=== PATIENT | female | born 1960 | race Caucasian/White ===

== ENCOUNTER 2019-04-23 12:22 | Observation (INO) ==
[2019-04-23] MEDS ORDERED: 0.9 % Sodium Chloride 1,000 ML IVC ONE (13:01)
--- NOTE | 2019-04-23 13:02 | Emergency Department Note ---
Disposition Clinical Impression: Abdominal pain, Calculus of kidney, Adrenal adenoma, Cholecystitis Disposition: Admitted As Inpatient Time of Disposition: 17:11 General Adult HPI - General Chief complaint: ED Abdominal Pain Stated complaint: Acute Cholecysitis Time Seen by Provider: 04/23/19 12:58 Source: patient Limitations: no limitations - History of Present Illness HPI Narrative: 58-year-old female reports emergency department complaining of right-sided upper abdominal pain. She has had recurrent nonbloody emesis. She saw her primary care physician who ordered an outpatient CT scan which demonstrated acute cholecystitis. There is no history of trauma. No diarrhea. The patient denies any flank pain. There is no history of fever chest pain or shortness of breath. The patient describes pain after eating. There is no history of rash or urinary symptomatology no vaginal discharge or bleeding or reported. The patient denies other acute complaints or concerns. Pain Scale: 5 - Related Data Allergies Allergy/AdvReac Type Severity Reaction Status Date / Time codeine AdvReac Mild Rash Verified 06/24/18 17:33 All systems ED: reviewed and negative except as stated. Past Medical History - Past Medical History Medical history: Reports: no medical history Psychiatric history: Reports: no psych history - Social History Smoking Status: Former smoker Smokeless Tobacco Status: No Alcohol use: Reports: none Drug use: Reports: none Physical Exam - General Limitations: no limitations General appearance: alert, in no apparent distress - Head Head exam: atraumatic, normocephalic, normal inspection - Eye Eye exam: Present: normal appearance, PERRL, EOMI - ENT ENT exam: normal exam, normal oropharynx, mucous membranes moist, TM's normal bilaterally, normal external ear exam - Neck Neck exam: Present: normal inspection, full ROM, trachea midline - Chest Chest inspection: Present: symmetric chest wall rise. Absent: tenderness - Respiratory Respiratory exam: Present: normal lung sounds bilaterally. Absent: respiratory distress, prolonged expiratory phase - Cardiovascular Cardiovascular exam: Present: regular rate, normal rhythm - Abdominal Exam Abdominal exam: Present: soft, tenderness, normal bowel sounds. Absent: distention, guarding, rebound, rigidity, trauma Abdominal tenderness: Present: RUQ, moderate - Extremities Exam Extremities exam: Present: normal inspection, full ROM, normal capillary refill. Absent: tenderness, pedal edema, joint swelling, calf tenderness - Expanded Lower Extremity Exam Lower leg exam: Absent: Homans' sign Neurovascular/Tendon exam: Present: normal capillary refill. Absent: motor deficit, sensory deficit, tendon deficit, extremity cold to touch, pallor - Back Exam Back exam: Present: normal inspection, full ROM. Absent: tenderness, CVA tenderness (R), CVA tenderness (L), vertebral tenderness - Neurological Exam Neurological exam: Present: alert, oriented X3, CN II-XII intact. Absent: motor sensory deficit - Psychiatric Psychiatric exam: Present: normal affect, normal mood - Skin Skin exam: Present: warm, dry, intact, normal color Course Vital Signs Temperature 98.1 F 04/23/19 12:51 Pulse Rate 69 04/23/19 12:51 Respiratory Rate 18 04/23/19 12:51 Blood Pressure 166/83 04/23/19 12:51 O2 Sat by Pulse Oximetry 97 04/23/19 12:51 Temperature 98.1 F 04/23/19 12:51 Pulse Rate 65 04/23/19 14:51 Respiratory Rate 18 04/23/19 14:51 Blood Pressure 154/89 04/23/19 14:51 O2 Sat by Pulse Oximetry 100 04/23/19 14:51 Oxygen Delivery Oxygen Delivery Room Air Medical Decision Making - MDM Narrative Medical decision making narrative: The patient reports with right upper abdominal pain and vomiting. CT scan demonstrates what appears to be cholecystitis. Laboratory studies reviewed. The patient was given IV Dilaudid and Zofran emergency department as well as IV fluids. She has had recurrent vomiting per report. Based on the patient's CT findings suggestive of cholecystitis I consulted with the patient's personal surgeon Dr. Leavitt who came to the emergency Department evaluated the patient. The patient will be admitted to the surgical service for further evaluation. Dr. Leavitt does not recommend antibiotics at this time. The patient is agreeable to admission. She is currently stable pending admission to the surgical service. - Lab Data Lab results reviewed: Yes I reviewed the patient's lab results. Result diagrams: 04/23/19 13:29 04/23/19 13:29 Lab Results 04/23/19 04/23/19 04/23/19 Range/Units 13: 13:29 13:29 WBC 9.9 (4.3-11.1) K/mcL RBC 4.45 (3.82-4.97) M/mcL Hgb 14.1 (11.5-15.4) g/dL Hct 41.9 (35.3-44.9) % MCV 94.2 (83.0-100.0) fL MCH 31.7 (28.0-33.3) pg MCHC 33.7 (31.6-35.5) g/dL RDW 12.4 (11.5-14.5) % Plt Count 270 (140-400) K/mcL MPV 9.8 (9.4-12.4) fL Immature Gran % 0.3 (0-4) % Seg Neutrophils % 71.3 % Lymphocytes % 19.0 % Monocytes % 8.1 % Eosinophils % 1.0 % Basophils % 0.3 % Neutrophils # 7.0 (1.6-8.9) K/mcL Lymphocytes # 1.9 (0.6-4.6) K/mcL Monocytes # 0.8 (0.0-1.3) K/mcL Eosinophils # 0.1 (0.0-0.6) K/mcL Basophils # 0.0 (0.0-0.2) K/mcL PT 11.1 (9.4-12.1) Seconds INR 1.0 APTT 32.0 (26.0-36.0) Seconds Sodium (136-145) mEq/L Potassium (3.5-5.1) mEq/L Chloride (98-107) mEq/L Carbon Dioxide (23-29) mEq/L BUN (6-20) mg/dL Creatinine (0.60-1.20) mg/dL Est GFR ( Amer) (> 60) Est GFR (Non-Af Amer) (> 60) BUN/Creatinine Ratio (6-26) Glucose (70-105) mg/dL Calculated Osmolality (280-300) Lactic Acid (0.5-2.2) mmol/L Calcium (8.6-10.3) mg/dL Total Bilirubin (0.3-1.0) mg/dL Direct Bilirubin (0.0-0.2) mg/dL Indirect Bilirubin (0.0-1.2) mg/dL AST (13-39) Units/L ALT (7-52) Units/L Alkaline Phosphatase (34-104) Units/L Troponin I (< 0.04) ng/mL C-Reactive Protein (Less than 10) mg/L Serum Total Protein (6.4-8.9) g/dL Albumin (3.5-5.7) g/dL Globulin (2.4-3.5) g/dL Albumin/Globulin Ratio (1.1-2.2) Lipase (11-82) Units/L Urine Color Yellow (Yellow) Urine Clarity Clear (Clear) Urine pH 7.0 (5.0-8.0) pH Units Ur Specific Ballard 1.016 (1.010-1.025) Urine Protein Negative (Neg-Trace) mg/dL Urine Glucose (UA) Normal (Normal) mg/dL Urine Ketones Negative (Negative) mg/dL Urine Blood Negative (Negative) Urine Nitrite Negative (Negative) Urine Bilirubin Negative (Negative) Urine Urobilinogen Normal (Normal) mg/dL Ur Leukocyte Esterase Negative (Negative) Ur Culture Indicated? NO (NO) 04/23/19 04/23/19 04/23/19 Range/Units 13:29 13:29 13:29 WBC (4.3-11.1) K/mcL RBC (3.82-4.97) M/mcL Hgb (11.5-15.4) g/dL Hct (35.3-44.9) % MCV (83.0-100.0) fL MCH (28.0-33.3) pg MCHC (31.6-35.5) g/dL RDW (11.5-14.5) % Plt Count (140-400) K/mcL MPV (9.4-12.4) fL Immature Gran % (0-4) % Seg Neutrophils % % Lymphocytes % % Monocytes % % Eosinophils % % Basophils % % Neutrophils # (1.6-8.9) K/mcL Lymphocytes # (0.6-4.6) K/mcL Monocytes # (0.0-1.3) K/mcL Eosinophils # (0.0-0.6) K/mcL Basophils # (0.0-0.2) K/mcL PT (9.4-12.1) Seconds INR APTT (26.0-36.0) Seconds Sodium 140 (136-145) mEq/L Potassium 3.7 (3.5-5.1) mEq/L Chloride 108 H (98-107) mEq/L Carbon Dioxide 24 (23-29) mEq/L BUN 11 (6-20) mg/dL Creatinine 0.59 L (0.60-1.20) mg/dL Est GFR ( Amer) > 60 (> 60) Est GFR (Non-Af Amer) > 60 (> 60) BUN/Creatinine Ratio 19 (6-26) Glucose 96 (70-105) mg/dL Calculated Osmolality 289 (280-300) Lactic Acid 0.7 (0.5-2.2) mmol/L Calcium 9.5 (8.6-10.3) mg/dL Total Bilirubin 0.7 (0.3-1.0) mg/dL Direct Bilirubin 0.1 (0.0-0.2) mg/dL Indirect Bilirubin 0.6 (0.0-1.2) mg/dL AST 13 (13-39) Units/L ALT 14 (7-52) Units/L Alkaline Phosphatase 66 (34-104) Units/L Troponin I < 0.03 (< 0.04) ng/mL C-Reactive Protein < 5 (Less than 10) mg/L Serum Total Protein 7.1 (6.4-8.9) g/dL Albumin 4.6 (3.5-5.7) g/dL Globulin 2.5 (2.4-3.5) g/dL Albumin/Globulin Ratio 1.8 (1.1-2.2) Lipase 30 (11-82) Units/L Urine Color (Yellow) Urine Clarity (Clear) Urine pH (5.0-8.0) pH Units Ur Specific Ballard (1.010-1.025) Urine Protein (Neg-Trace) mg/dL Urine Glucose (UA) (Normal) mg/dL Urine Ketones (Negative) mg/dL Urine Blood (Negative) Urine Nitrite (Negative) Urine Bilirubin (Negative) Urine Urobilinogen (Normal) mg/dL Ur Leukocyte Esterase (Negative) Ur Culture Indicated? (NO) - Radiology Data Radiology results reviewed: Yes I reviewed the patient's radiology results.
[2019-04-23 13:19] LABS: Bilirubin,Urine Negative (Negative); Blood,Urine Negative (Negative); Clarity,Urine Clear (Clear); Color,Urine Yellow (Yellow); Glucose,Urine (UA) Normal (Normal); Ketones,Urine Negative (Negative); Leukocyte Esterase,Urine Negative (Negative); Nitrite,Urine Negative (Negative); Protein,Urine Negative (Neg-Trace); Specific Gravity,Urine 1.016 (1.010-1.025); Urobilinogen,Urine Normal (Normal)
[2019-04-23] MEDS ORDERED: *HR* HYDROmorphone (PF) 1 MG/ML SYRINGE IVP ONE (13:38)
[2019-04-23] MEDS ORDERED: Ondansetron 4 MG/2 ML VIAL IVP ONE (13:39)
[2019-04-23 13:42] LABS: Basophils % 0.3 %; Eosinophils # 0.1 K/mcL (0.0-0.6); Hematocrit 41.9 % (35.3-44.9); Hemoglobin 14.1 g/dL (11.5-15.4); Immature Granulocytes % 0.3 % (0-4); Lymphocytes # 1.9 K/mcL (0.6-4.6); Mean Corpuscular HGB Conc 33.7 g/dL (31.6-35.5); Mean Corpuscular Hemoglobin 31.7 pg (28.0-33.3); Mean Corpuscular Volume 94.2 fL (83.0-100.0); Mean Platelet Volume 9.8 fL (9.4-12.4); Monocytes # 0.8 K/mcL (0.0-1.3); Monocytes % 8.1 %; Platelet Count 270 K/mcL (140-400); Red Blood Count 4.45 M/mcL (3.82-4.97); Red Cell Distribution Width 12.4 % (11.5-14.5); Segmented Neutrophils % 71.3 %; White Blood Count 9.9 K/mcL (4.3-11.1)
[2019-04-23 13:57] LABS: Prothrombin Time 11.1 Seconds (9.4-12.1)
[2019-04-23 14:11] LABS: Alanine Aminotransferase 14 Units/L (7-52); Albumin 4.6 g/dL (3.5-5.7); Albumin/Globulin Ratio 1.8 (1.1-2.2); Alkaline Phosphatase 66 Units/L (34-104); Aspartate Amino Transferase 13 Units/L (13-39); BUN/Creatinine Ratio 19 (6-26); Bilirubin,Direct 0.1 mg/dL (0.0-0.2); Bilirubin,Indirect 0.6 mg/dL (0.0-1.2); Bilirubin,Total 0.7 mg/dL (0.3-1.0); Blood Urea Nitrogen 11 mg/dL (6-20); Calcium 9.5 mg/dL (8.6-10.3); Carbon Dioxide 24 mEq/L (23-29); Chloride 108 mEq/L (98-107); Globulin 2.5 g/dL (2.4-3.5); Glucose 96 mg/dL (70-105); Lipase 30 Units/L (11-82); Osmolality,Calculated 289 (280-300); Potassium 3.7 mEq/L (3.5-5.1); Sodium 140 mEq/L (136-145); Total Protein 7.1 g/dL (6.4-8.9); Troponin I < 0.03 ng/mL (< 0.04); eGFR For African Americans > 60 (> 60); eGFR For Non-African Americans > 60 (> 60)
[2019-04-23] MEDS ORDERED: *HR* OxyCODONE Immed Rel 5 MG TABLET PO PRN (17:04)
[2019-04-23] MEDS ORDERED: Acetaminophen 325 MG TABLET PO PRN (17:04)
[2019-04-23] MEDS ORDERED: *HR* OxyCODONE/APAP 5/325 TABLET PO PRN (17:04)
[2019-04-23] MEDS ORDERED: Ondansetron 4 MG/2 ML VIAL IVP PRN (17:06)
--- NOTE | 2019-04-23 17:25 | General Surg History&Physical ---
Date of Encounter: 04/23/19 Time of Encounter: 16:35 History of Present Illness Chief complaint: right upper quadrant pain, cholelithiasis HPI: Ms. Araiza is a 58 year old female referred to me at the patient 's request after presenting to Dr Aviles early today with severe, recurrent right upper quadrant abdominal pain accompanied by nausea and vomiting. The patient describes symptoms dating back approximately 1 week. She was seen earlier today and CT abdomen/pelvis was ordered. The CT findings include: Clear lung bases bilaterally; liver, spleen, pancreas, and kidneys demonstrate no acute findings; stable left adrenal adenoma; abnormal gallbladder with gallstones, wall thickening and pericholecystic fluid. The findings were concerning for acute cholecystitis prompting referral to the [facility] ED for further evaluation and possible treatment. Past medical history: Diverticulosis; perforated diverticulitis with pericolic abscess, status post primary sigmoid resection with stapled colocolonic anastomosis, 03/27/2013. Surgical history: Primary sigmoid resection, 03/27/2013; ; hysterectomy; incision and drainage perirectal abscess; hemorrhoidectomy; colonoscopy, last completed 2002 Allergies: Codeine Medications: Aleve Family history: Mother had breast cancer Social history: Patient quit all alcohol consumption approximately 10 years ago; she denies any illicit drug use. She "quit smoking" also approximately 10 years ago but then reports smoking an occasional cigarette. Daughter is approximately 32 weeks but otherwise healthy. Physical examination: Age-appropriate woman resting comfortably in her hospital bed. She was medicated with hydromorphone and ondansetron prior to my arrival in the emergency department. She is feeling significantly improved but still complaining of mild epigastric discomfort. The patient is 1.5 cm tall, 60.781 kg, BMI 24.5 The patient is afebrile, 98.1; pulse 65-69 and regular; respiratory rate 17- 18, nonlabored; blood pressure 154/89 to 166/83. SPO2 on room air 100% Skin is warm without obvious jaundice. Sclerae are anicteric Lungs clear bilaterally; no obvious abdominal pain and deep inspiration Cardiac: Regular rate, no appreciable murmur Abdomen: Minimal tenderness in the right upper quadrant and epigastrium. No discernible hepatosplenomegaly or intra-abdominal masses. Hypoactive bowel sounds. No obvious peritoneal signs or rebound. Extremities: No obvious clubbing, cyanosis, or edema. CT abdomen and pelvis - completed earlier today, reviewed with [facility]: WBC 9.9 with normal differential; hemoglobin 14.1, hematocrit 41.9 Electrolytes notable for chloride of 108, BUN 11, creatinine 0.59 LFTs within normal limits; lactic acid 0.7; troponin less than 0.03. C- reactive protein less than 5 Urinalysis unremarkable with pH 7.0, specific gravity 1.016 no significant microscopic findings. Impression: 58-year-old, patient of Dr Aviles referred to the [facility] ED with acute right upper quadrant and epigastric abdominal pain accompanied by nausea and vomiting. Abnormal CT abdomen and pelvis showing gallstones, gallbladder wall thickening and pericholecystic fluid. The findings are concerning for acute cholecystitis. Plan: admit for IV fluid resuscitation, IV ATB, IV pain control, antiemetics today. Allow clear liquids tonight if no N/V. If stabilized -cholecystectomy in AM. The patient has a significant history of previous transabdominal sigmoid colectomy due to acute diverticulitis with perforation. (03/2013) The patient has also undergone a hysterectomy and previous . These previous surgeries may preclude laparoscopic cholecystectomy. I have discussed this in detail with the patient and daughter who was at bedside. Laparoscopic approach will be initiated but it is possible the patient will require open cholecystectomy. Risks of surgery include hemorrhage, infection, intra-abdominal abscess, bile leak, injury to adjacent bowel, organs, ducts and vessels. Other risks associated with this surgery include cardiac dysrhythmia, pneumonia, respiratory failure. Past Med Surg Social Fam HX - Past Medical History Medical history: no medical history Psychiatric history: no psych history - Past Surgical History Additional surgical history: bowel surgery. kayley rectal cyst removed - Social History Smoking Status: Former smoker Smokeless Tobacco Status: No Alcohol use: none Drug use: none Medications and Allergies Allergy/AdvReac Type Severity Reaction Status Date / Time codeine AdvReac Mild Rash Verified 06/24/18 17:33 Review of Systems All systems PM: The remainder of the systems were reviewed and are negative General Surgery Exam Initial Vital Signs Temp Pulse Resp BP Pulse Ox 98.1 F 69 18 166/83 97 04/23/19 12:51 04/23/19 12:51 04/23/19 12:51 04/23/19 12:51 04/23/19 12:51 Results - Labs 04/23/19 13:29 04/23/19 13:29 Abnormal lab results Chloride 108 mEq/L (98-107) H 04/23/19 13:29 Creatinine 0.59 mg/dL (0.60-1.20) L 04/23/19 13:29 Diabetes panel 04/23/19 Range/Units 13:29 Sodium 140 (136-145) mEq/L Potassium 3.7 (3.5-5.1) mEq/L Chloride 108 H (98-107) mEq/L Carbon Dioxide 24 (23-29) mEq/L BUN 11 (6-20) mg/dL Creatinine 0.59 L (0.60-1.20) mg/dL Glucose 96 (70-105) mg/dL Calcium 9.5 (8.6-10.3) mg/dL AST 13 (13-39) Units/L ALT 14 (7-52) Units/L Alkaline Phosphatase 66 (34-104) Units/L Albumin 4.6 (3.5-5.7) g/dL Calcium panel 04/23/19 Range/Units 13:29 Calcium 9.5 (8.6-10.3) mg/dL Albumin 4.6 (3.5-5.7) g/dL Pituitary panel 04/23/19 Range/Units 13:29 Sodium 140 (136-145) mEq/L Potassium 3.7 (3.5-5.1) mEq/L Chloride 108 H (98-107) mEq/L Carbon Dioxide 24 (23-29) mEq/L BUN 11 (6-20) mg/dL Creatinine 0.59 L (0.60-1.20) mg/dL Glucose 96 (70-105) mg/dL Calcium 9.5 (8.6-10.3) mg/dL Adrenal panel 04/23/19 Range/Units 13:29 Sodium 140 (136-145) mEq/L Potassium 3.7 (3.5-5.1) mEq/L Chloride 108 H (98-107) mEq/L Carbon Dioxide 24 (23-29) mEq/L BUN 11 (6-20) mg/dL Creatinine 0.59 L (0.60-1.20) mg/dL Glucose 96 (70-105) mg/dL Calcium 9.5 (8.6-10.3) mg/dL Total Bilirubin 0.7 (0.3-1.0) mg/dL AST 13 (13-39) Units/L ALT 14 (7-52) Units/L Alkaline Phosphatase 66 (34-104) Units/L Albumin 4.6 (3.5-5.7) g/dL All other labs normal.
[2019-04-23] MEDS: Piperacillin/Tazobactam 3.375 GM in 0.9 % Sodium Chloride Mini Bag 100 ML IVP SCH (18:47)
[2019-04-23] MEDS: Ringers Solution, Lactated 1,000 ML IVC SCH (18:49)
[2019-04-23] MEDS ORDERED: Morphine Sulfate 2 MG/ML SYRINGE IVP PRN (19:13)
[2019-04-24] MEDS: Piperacillin/Tazobactam 3.375 GM in 0.9 % Sodium Chloride Mini Bag 100 ML IVP SCH ×2 (02:25→10:04)
[2019-04-24] MEDS: Ringers Solution, Lactated 1,000 ML IVC SCH (06:50)
[2019-04-24] MEDS ORDERED: *HR* Propofol 200 MG/20 ML VIAL IVP ONE ×3 (10:07→11:53)
[2019-04-24] MEDS ORDERED: *HR* Midazolam HCl 2 MG/2 ML VIAL ONE ×2 (10:07→12:09)
[2019-04-24] MEDS ORDERED: *HR* FentaNYL (PF) 100 MCG/2 ML VIAL ONE (10:07)
[2019-04-24] MEDS ORDERED: Isovue-300 50 ML VIAL ONE (10:30)
[2019-04-24] MEDS ORDERED: Bupivacaine/EPI 1:200k 0.25%PF 30 ML VIAL ONE (10:30)
[2019-04-24] MEDS ORDERED: Scopolamine Patch 1.5 MG PATCH.TD72 TD STA (10:38)
--- NOTE | 2019-04-24 10:40 | Anesthesia Evaluation PreOp ---
Date of Encounter: 04/24/19 Time of Encounter: 10:39 - Past History Planned Operation: LAP CHOLECYSTECTOMY, IOC Cardiac History: Denies any Significant Hx Pulmonary History: Former smoker [employer] TE[employer]CHIT[employer] History: Denies Any Significant HX Other Medical History: Denies Any Significant HX Anesthesia History: Past Anesthesia, Problems (PONV) Alcohol Use: none Drug use: none Medications and Allergies No Known Home Drugs 04/23/19 [History] Allergy/AdvReac Type Severity Reaction Status Date / Time ciprofloxacin Allergy Rash Verified 04/23/19 21:24 clindamycin Allergy Rash Verified 04/23/19 21:24 codeine AdvReac Mild Rash, Verified 04/23/19 21:24 Vomiting - Meds/Allergy Pre-op Review Medications Reviewed: Yes Allergies Reviewed: Yes Beta Blockers on Current Med List: No Anesthesia Results - Labs 04/23/19 13:29 04/23/19 13:29 Anesthesia Exam Vital Signs/O2 Sat, Most Current Temp Pulse Resp BP Pulse Ox 98.4 F 53 14 114/69 98 04/24/19 07:56 04/24/19 07:56 04/24/19 07:56 04/24/19 07:56 04/24/19 07:56 Weight: 61 KG - BMI 25 NPO (# of Hours): 8 - HEENT Mallampati: III Teeth: Normal - Cardiac Rhythm: Regular - Pulmonary Breath Sounds: bilateral Clear Anesthesia Assess/Plan ASA Score: 2 Anesthetic Plan: General Monitoring Plan: Standard Monitors Recovery Plan: PACU
[2019-04-24] MEDS ORDERED: Propofol 500 MG/50 ML INFUS..BTL ONE (10:56)
[2019-04-24] MEDS ORDERED: Ondansetron 4 MG/2 ML VIAL ONE (11:04)
[2019-04-24] MEDS ORDERED: *HR* Labetalol 20 MG/4 ML SYRINGE IVP PRN (11:42)
[2019-04-24] MEDS ORDERED: *HR* Promethazine 25 MG/ML VIAL IVP PRN (11:42)
[2019-04-24] MEDS ORDERED: *HR* Meperidine 25 MG/ML SYRINGE IVP PRN (11:42)
[2019-04-24] MEDS ORDERED: Acetaminophen IV 1,000 MG/100 ML INFUS..BTL IVPB ONE (11:42)
[2019-04-24] MEDS ORDERED: Ketorolac 30 MG/ML VIAL IVP ONE (11:42)
[2019-04-24] MEDS ORDERED: *HR* HYDROmorphone (PF) 1 MG/ML SYRINGE IVP PRN (11:42)
[2019-04-24] MEDS ORDERED: Ondansetron 4 MG/2 ML VIAL IVP ONE (11:42)
[2019-04-24] MEDS ORDERED: Albuterol 2.5 MG/3 ML NEBULIZER IH ONE (11:42)
[2019-04-24] MEDS ORDERED: *HR* OxyCODONE Immed Rel 5 MG TABLET PO PRN (11:42)
[2019-04-24] MEDS ORDERED: Esmolol 100 MG/10 ML VIAL IVP ONE (11:51)
[2019-04-24] MEDS ORDERED: Neostigmine Methylsulfate 3 MG/3 ML SYRINGE ONE (12:08)
[2019-04-24] MEDS ORDERED: Ringers Solution, Lactated 500 ML IVC ONE (12:29)
--- NOTE | 2019-04-24 12:42 | Operative Note ---
Date of procedure: 04/24/19 Pre-op diagnosis: acute cholecystitis, cholelithiasis Post-op diagnosis: same Procedure: Laparoscopic cholecystectomy, intraoperative cholangiogram; lysis of adhesions Complications: None apparent Anesthesia: GETA Local Anesthetics: 0.25% Sensorcaine HCL with Epinephrine 1:200,000 SubQ (cc) (30 mL) Surgeon: Herbert Leavitt Was there an graduate assistant athletic trainer present: No Estimated blood loss (cc): 5 IV fluids (cc): 1,400 Specimen: gallbladder Condition: stable Disposition: PACU Procedure in Detail: Brief history: 58-year-old admitted to [facility] after presenting to the emergency department with acute onset right upper quadrant abdominal pain and nausea and vomiting, 04/23/19. The patient presented to her PCP early in the day complaining of abrupt onset of these symptoms. CT abdomen and pelvis demonstrated an abnormal gallbladder with stones, wall thickening, and pericholecystic fluid. The patient was instructed to present to the emergency department for further evaluation and treatment. She was ultimately referred to [place], admitted for overnight observation/treatment and surgery scheduled this morning. Historical details and physical findings are available in the dictated H&P. Technique: The patient was brought to the operating room where she was placed supine on the procedure table. The patient was identified to appropriate person and procedure. The accuracy of this information was confirmed by the patient and procedure team. She was then intubated and anesthetized under the supervision of Dr. Heck. The abdomen was examined under anesthesia. There was no obvious hepatosplenomegaly or intra-abdominal masses. The abdomen was prepped and draped in the usual sterile fashion. Because of previous open transabdominal surgery, laparoscopic approach was initiated in the right upper quadrant, midclavicular line. Just caudal to the costal margin, several milliliters of 0.25% bupivacaine with 1-200,000 epinephrine was infiltrated. A small transverse incision was made. A 5 mm Xcel port was established. The rigid laparoscope was placed within the obturator to visualize passage through the layers of the anterior abdominal wall. When the abdominal cavity was accessed the obturator was replaced by the rigid laparoscope and the abdomen was insufflated with gaseous carbon dioxide. There was no obvious visible injury from establishing this port. There were adhesions caudal to the umbilicus related to the previous transabdominal surgery. I opted to place the periumbilical port supraumbilically. The site was selected, infiltrated with several milliliters of 0.25% bupivacaine with 1-200,000 units epinephrine and then incised. Under direct visualization, an 11 mm port was established. The rigid laparoscope was then shifted to the subcutaneous location to visualized placement of the remaining ports. Each port site was infiltrated with the bupivacaine with epinephrine solution. The gallbladder was tensely distended with trace fluid around the gallbladder. The gallbladder was decompressed by aspirating approximately 50 mL of a dark green. This allowed the gallbladder to be grasped and retracted. The hepatoduodenal ligament was dissected until the cystic duct was identified and skeletonized. The cystic duct was clipped near near the infundibulum of the gallbladder. A Taut cholangiogram catheter was introduced via a separate percutaneous insertion site. The cystic duct was incised, the cholangiogram catheter inserted. Using C-arm fluoroscopy a cholangiogram was then completed. This demonstrated a normal-appearing hepatobiliary tree with free flow of contrast into the duodenum. There were no filling defects. Dr. Brar, [facility], provided an intraoperative reading. Dr. Brar identified no abnormalities. The cholangiogram catheter was removed. The cystic duct was clipped twice and divided proximal to these 2 applied clips. The anatomy was well visualized. The cystic artery was identified, skeletonized, and clipped. The cystic artery was then divided distal to 2 of the 3 clips placed on the artery. The gallbladder was then dissected from the liver bed using Ethicon harmonic leandro. When the gallbladder was from the surrounding structures it was placed in an endoscopic pouch and extracted. The gallbladder was retrieved and sent to pathology for analysis. Several small stones were evident within the gallbladder. The liver bed was inspected for adequate hemostasis. Hemostasis was deemed adequate. With the rigid laparoscope placed in the one of the subcostal ports, the kayley-umbilical adhesions were dissected with the endoscopic leandro. These adhesions were deemed to increase the risk of a bowel obstruction due to potential rotation around these fixation points. These lysis of adhesions was accomplished without difficulty and without obvious bowel injury. The pneumoperitoneum was evacuated. The instrumentation removed. The fascia of the supraumbilical port was closed with interrupted [id number] 0 Vicryl using S retractors. The skin edges of the port sites were then approximated with subcuticular 4-0 Vicryl. The incisions were sealed with Dermabond dermal adhesive. The patient was taken to recovery in stable condition. Needle, sponge, and instrument counts were correct at the close of the case.
--- NOTE | 2019-04-24 12:52 | Anesthesia Evaluation Post Op ---
Date of Encounter: 04/24/19 Time of Encounter: 12:51 - Vital Signs Vital Signs: Vital Signs/O2 Sat/Glucose, Most Recent Temp Pulse Resp BP Pulse Ox 98.5 F 56 18 145/72 98 04/24/19 12:30 04/24/19 12:40 04/24/19 12:40 04/24/19 12:40 04/24/19 12:40 Blood Glucose* 85 - Airway Airway: Non-obstructed - Cardiovascular Regular Rate - Mental Status Mental Status: Alert & Oriented, Answers Appropriately - Pain Pain Scale: 0 (resting comfortably) Pain Scale used: Patterson-Imtiaz (Faces) - Nausea Vomiting Nausea Vomiting: Not Present - Hydration Hydration: NPO - Discharge PostOp Status: Transfer Patient to floor
[2019-04-24] MEDS ORDERED: Ringers Solution, Lactated 1,000 ML IVC SCH (13:21)
[2019-04-24] MEDS ORDERED: traMADol 50 MG TABLET PO PRN (13:21)
[2019-04-24] MEDS ORDERED: Ondansetron 4 MG/2 ML VIAL IVP PRN (13:21)
[2019-04-24] MEDS ORDERED: Acetaminophen 325 MG TABLET PO PRN (13:21)
[2019-04-24] MEDS ORDERED: Morphine Sulfate 2 MG/ML SYRINGE IVP PRN (13:21)
[2019-04-24 16:22] VITALS: BP 154/75
--- NOTE | 2019-04-24 17:53 | General Surgery Progress Note ---
Date of Encounter: 04/24/19 Time of Encounter: 17:49 Subjective Narrative: General Surgery - post op Patient feeling much improved; preoperative symptoms are resolved. Patient denies any nausea. No reported emesis. The patient is tolerating diet. Afebrile, currently 97.5, hemodynamically stable with pulse 87-61; respiratory rate 15; blood pressure 154/75 to 155/90. Lungs: Clear Abdomen: Soft, minimal port site tenderness. Supraumbilical port site with a small amount of bloody drainage. This was cleansed with alcohol and dry sterile dressing applied. Port sites otherwise intact. Impression/Plan: Acute cholecystitis, cholelithiasis- status post laparoscopic cholecystectomy with intraoperative cholangiogram; lysis of adhesions Acceptable postoperative status, discharge home Outpatient follow-up 04/29/19. Objective Vital Signs - Last 8 Hours Temp Pulse Resp BP Pulse Ox 04/24/19 16:21 97.5 F L 59 15 154/75 96 04/24/19 15:20 61 15 155/90 97 04/24/19 14:23 57 14 153/81 94 04/24/19 13:53 98.7 F 57 14 138/76 95 04/24/19 13:23 98.2 F 55 14 156/89 94 04/24/19 13:00 98.8 F 58 16 154/81 98 04/24/19 12:50 60 18 150/80 97 04/24/19 12:40 56 18 145/72 98 04/24/19 12:30 98.5 F 82 18 128/86 94 Intake and Output 04/24/19 04/24/19 04/24/19 07:59 15:59 23:59 Intake Total 1099 / 1949 850 / 1950 Output Total 5 / 5 Balance 1100 / 5 845 / 1945 Intake: IV Fluids 1100 / 1950 850 / 1950 Lactated Ringers 1,000 ML @ 75 1000 / 1150 150 / 1150 mls/hr IVC .[id number] SYLWIA Rx#: [id number] Lactated Ringers 500 ML @ 1000 500 / 500 mls/hr IVC .Q30M ONE Rx#: [id number] Zosyn 3.375 GM In 0.9 % Sodium 100 / 200 100 / 200 Chloride (Mini-Bag +) 100 ML @ 25 mls/hr IVP Q8H SYLWIA Rx#: [id number] Ofirmev 1,000 mg/100 ml 1,000 100 / 100 mg In 100 ml @ 400 mls/hr IVPB ONCE ONE Rx#:[id number] Output: Estimated Blood Loss 5 / 5 Other: Meal NPO for Breakfast # Voids 1 Weight 60.9 kg Blood Glucose* 85 Patient Weight 04/24/19 23:59 Weight 60.9 kg - Labs 04/23/19 13:29 04/23/19 13:29 Consult Discharge Plan - Plan Referrals: Carlyle Aviles DO [Primary Care Provider] -
--- NOTE | 2019-04-24 17:56 | Discharge Summary ---
Outpatient Proc Discharge Plan - Plan Additional Instructions: Regular diet Activity as tolerated; lifting limited to less than [address] until at least 24 hours after administration of anesthesia and the patient is able to brake emergently. Patient may shower, cleanse incisions with soap and water Patient may resume home meds Tylenol, ibuprofen, Motrin, Advil, Aleve, etc. as needed for pain Prescription for tramadol 100 mg, #6, by mouth every 8 hours as needed for pain not relieved by [id number] medications Outpatient surgical follow-up, 04/29/19. Patient: Office in a.m. to make this appointment. Prescriptions: Tramadol HCl [Ultram] 100 mg PO TID PRN 2 Days #6 tab PRN Reason: Pain Home Medications: Acetaminophen [Tylenol] 650 mg PO Q6H PRN tablet 04/24/19 [Rx] Tramadol HCl [Ultram] 100 mg PO TID PRN 2 Days #6 tab 04/24/19 [Rx]
--- NOTE | 2019-04-25 11:31 | Electrocardiograph Report ---
[place] [address] [facility] Test Date: 2019-04-23 Pat Name: Eva Araiza Department: [id number] Room: 3A13 Gender: F [employer]: : [id number] Requested By: Jesús Aguirre Order Number: [id number] Reading MD: Jacobo Donato Measurements Intervals [place] Rate: 67 P: 58 AK: 154 QRS: 59 QRSD: 91 T: 49 QT: 422 QTc: 446 Interpretive Statements Sinus rhythm wnl Electronically Signed On 04-25-2019 11:29:53 EDT by Jacobo Donato
== END 2019-04-24 18:18 | disposition home or self-care (01) ==
LOC: EMEROOARM 12:22 → 3ANU 12:22
PROVIDERS: ADMIT Surgery; ATTEND Surgery